=== PATIENT | male | born 1985 | race Caucasian/White ===

== ENCOUNTER 2023-05-28 08:30 | Outpatient (CLI) | payer BC ==
[2023-05-28 12:00] LABS: BASOPHILS % (AUTO) 0.8 %; EOSINOPHILS # (AUTO) 0.1 10^3/uL (0.0-0.7); HCT - HEMATOCRIT 48.6 % (42.0-52.0); HGB - HEMOGLOBIN 15.6 g/dL (14.0-18.0); LYMPHOCYTES # (AUTO) 1.8 10^3/uL (1.5-3.5); LYMPHOCYTES % (AUTO) 35.7 %; MEAN CORPUSCULAR HEMOGLOBIN 29.9 pg (27.0-31.0); MEAN CORPUSCULAR HGB CONC 32.1 g/dL (32.0-36.0); MEAN CORPUSCULAR VOLUME 93.1 fL (80.0-94.0); MEAN PLATELET VOLUME 11.1 fL (7.4-11.4); MONOCYTES # (AUTO) 0.4 10^3/uL (0.0-1.0); MONOCYTES % (AUTO) 8.7 %; NEUTROPHILS # (AUTO) 2.7 10^3/uL (1.5-6.6); NEUTROPHILS % (AUTO) 53.6 %; PLT - PLATELET COUNT 268 10^3/uL (130-450); RED BLOOD COUNT 5.22 10^6/uL (4.70-6.10); RED CELL DISTRIBUTION WIDTH 11.8 % (12.0-15.0)
[2023-05-28 12:17] LABS: INR 1.1 (0.8-1.2); PT - PROTHROMBIN TIME 11.7 secs (9.9-12.6)
[2023-05-28 12:21] LABS: RHEUMATOID FACTOR NEGATIVE (Negative)
[2023-05-28 12:31] LABS: THYROID STIMULATING HORMONE 2.78 uIU/mL (0.34-5.60)
[2023-05-28 12:33] LABS: PARTIAL THROMBOPLASTIN TIME 27.2 secs (24.9-33.3)
[2023-05-28 12:37] LABS: ALBUMIN 4.8 g/dL (3.2-5.5); ALBUMIN/GLOBULIN RATIO 1.7 (1.0-2.2); ALKALINE PHOSPHATASE 80 IU/L (42-121); ALT ALANINE AMINOTRANSFERASE 17 IU/L (10-60); AST ASPARTATE AMINOTRANSFERASE 13 IU/L (10-42); BILIRUBIN,TOTAL 0.5 mg/dL (0.2-1.0); BUN - BLOOD UREA NITROGEN 19 mg/dL (6-20); CALCIUM 10.5 mg/dL (8.5-10.3); CARBON DIOXIDE - CO2 30 mmol/L (21-32); CHLORIDE 102 mmol/L (101-111); CREATININE 0.9 mg/dL (0.6-1.3); CRP - C-REACTIVE PROTEIN < 0.5 mg/dL (<0.5); GFR - MDRD 94 (>89); GLUCOSE 99 mg/dL (74-104); POTASSIUM 4.2 mmol/L (3.5-4.5); SODIUM 138 mmol/L (135-145); TOTAL PROTEIN 7.6 g/dL (6.4-8.9)
== END 2023-05-28 08:45 | disposition home or self-care (01) ==
LOC: LAB.N 08:30
PROVIDERS: ATTEND Nurse Practitioner
DX: R23.8 Other skin changes (principal)
CPT/HCPCS: 36415; 80053; 84443; 85025; 85379; 85610; 85730; 86038; 86140; 86430

== ENCOUNTER 2023-05-28 13:47 | Emergency (ER) | payer BC ==
[2023-05-28 14:04] VITALS: BP 153/92; O2SAT 99
--- NOTE | 2023-05-28 14:18 | ED Physician Documentation ---
History of Present Illness - Stated complaint Stated Complaint: SENT BY CLINIC - Chief complaint Chief Complaint: General - Additonal information Additional information: Félix is a otherwise healthy 38-year-old gentleman who presents with l ongstanding symptoms in his extremities. He describes that he has had frequent bouts of what sounds a lot like Raynaud's phenomenon: He has extreme cold sensitivity out of his hands and feet he has skin that often changes color goes from red to pale to purple. He feels that he has slow healing wounds on his legs. He also states he occasionally has numbness and tingling of his arms especially when he sleeps in certain positions. He is never been told he has extra ribs or thoracic outlet syndrome. He has been having the symptoms of significant cold intolerance and purplish toes off and on with cold temperature for a number of years he says more may be more than 3. He is an avid cyclist and has lots of blisters on his toes that are slow to heal. He has a referral to podiatry for this. He ended up in the urgent care today for evaluating this longstanding problem. A check some lab work and found him to have an elevated D-dimer called him at home and asked him to come to the emergency department. He has no chest pain shortness of breath he is never had DVT. He has no immobility he is an active athlete. Non-smoker. No family history of significant issues like this. Review of Systems Skin: reports: Rash Neurologic: reports: Numbness PD PAST MEDICAL HISTORY - Past Medical History Past Medical History: No Cardiovascular: None Respiratory: None Neuro: None Endocrine/Autoimmune: None Psych: Anxiety - Past Surgical History Past Surgical History: No - Present Medications Home Medications: Ambulatory Orders Medication Instructions Recorded Confirmed Guanfacine HCl [Intuniv] 1 tab PO DAILY 05/28/23 05/28/23 - Allergies Allergies/Adverse Reactions: Allergies Allergy/AdvReac Type Severity Reaction Status Date / Time No Known Drug Allergies Allergy Verified 05/28/23 14:17 - Social History Does the pt smoke?: No Smoking Status: Never smoker Does the pt have substance abuse?: No - Immunizations Immunizations are current?: Yes PD ED PE NORMAL - Vitals Vital signs reviewed: Yes - General General: Alert and oriented X 3, No acute distress - HEENT HEENT: Atraumatic, Pharynx benign - Neck Neck: Supple, no meningeal sign - Cardiac Cardiac: RRR - Respiratory Respiratory: No respiratory distress - Extremities Extremities: No deformity - Neuro Neuro: No motor deficit, No sensory deficit - Free text exam Free text exam: Patient has pulses throughout including DP and PT. His toes are purplish in color. Cap refills less than 2 seconds. He does have blisters/bruises on the distal tips of his toes specifically on the left second and third toe. Sensation is intact motor function is intact. Upper extremity neurovascular exam is completely normal. His toes are cool to the touch. Results - Vitals Vitals: Vital Signs - 24 hr 05/28/23 13:49 Temperature 36.9 C Heart Rate 92 Respiratory 18 Rate Blood Pressure 153/92 H O2 Saturation 99 Oxygen O2 Source Room air - Rads (name of study) arterial duplex Relevant Findings:: Prelim report reviewed (normal study) PD Medical Decision Making - ED course Complexity details: reviewed old records, reviewed results (Outpatient labs show D-dimer over thousand. His rheumatoid factor is negative. CBC and chemistry otherwise unremarkable.), considered differential (Arterial insufficiency, Raynaud's phenomenon, Raynaud's syndrome associated with an autoimmune disease not yet diagnosed) ED course: Overall Félix's presentation is consistent with ongoing, subacute Raynaud's phenomenon. He does have purplish type toes though his cap refill is intact and his arterial Doppler study is normal. Color is to change based on temperature. With his warm socks on his toes to return to normal color. Rheumatoid factor is negative, further workup could be done to elucidate whether he has some other autoimmune condition that might be associated with Raynaud's phenomenon or syndrome. I do not think his presentation is consistent with deep vein thrombosis. Would not get a DVT study on this young man given his presentation. Arterial studies reassuring. He understands that given the chronic nature of the symptoms that may require further testing and evaluation to determine the exact cause but in the meantime doing as he is doing which is attempting to keep the extremities warm and following up with podiatry for wound care seem like totally reasonable options. Will give him a referral for PCP here in [place]. Departure - Departure Disposition: 01 Home, Self Care Clinical Impression: Raynaud phenomenon Qualifiers: Raynaud?s-associated gangrene presence: without gangrene Qualified Code(s): I73.00 - Raynaud's syndrome without gangrene Condition: Good Comments: As we discussed today, documenting that you have normal arterial perfusion is important in the setting of the testing he had earlier at the walk-in clinic. Further testing could absolutely be undertaken with your primary care physician to see if you have any other disease process associated with the Raynaud's ph enomenon. In the meantime continue to keep your extremities warm as best he can and keep her follow-up with podiatry to work on the blisters on your feet. We will give you a list of primary care physicians locally. Return to the emergency department for any other concerns. Hope you are feeling better soon. Forms: PCP List
--- NOTE | 2023-05-28 15:22 | Ultrasound Report ---
PROCEDURE: Arterial Duplex Lwr Ext BL INDICATIONS: purple toes TECHNIQUE: Color and pulse Doppler interrogation was performed of both lower extremity arterial systems, with im age documentation. COMPARISON: None FINDINGS: Right lower extremity: Common femoral artery: 131 cm/sec, with triphasic flow. Deep femoral artery: 89 cm/sec, with triphasic flow. Proximal superficial femoral artery: 109 cm/sec, with triphasic flow. Mid superficial femoral artery: 108 cm/sec, with triphasic flow. Distal superficial femoral artery: 111 cm/sec, with triphasic flow. Popliteal artery: 42 cm/sec, with triphasic flow. Posterior tibial artery: 48 cm/sec, with triphasic flow. Anterior tibial artery/dorsalis pedis: 70/23 cm/sec, with triphasic flow. Crandall-scale imaging description: No significant atherosclerotic plaque. Left lower extremity: Common femoral artery: 118 cm/sec, with triphasic flow. Deep femoral artery: 68 cm/sec, with biphasic flow. Proximal superficial femoral artery: 114 cm/sec, with triphasic flow. Mid superficial femoral artery: 115 cm/sec, with triphasic flow. Distal superficial femoral artery: 73 cm/sec, with triphasic flow. Popliteal artery: 64 cm/sec, with triphasic flow. Posterior tibial artery: 34 cm/sec, with triphasic flow. Anterior tibial artery/dorsalis pedis: 51/70 cm/sec, with triphasic flow. Crandall-scale imaging description: No significant atherosclerotic plaque. IMPRESSION: Patent lower extremity vasculature without hemodynamically significant stenosis. Reviewed by: Sanjay Gibbons MD on 05/28/2023 3:20 PM PDT Approved by: Sanjay Gibbons MD on 05/28/2023 3:20 PM PDT Station ID: [id number]
== END 2023-05-28 15:25 | disposition home or self-care (01) ==
LOC: ED 13:47
DX: I73.00 Raynaud's syndrome without gangrene (principal)
CPT/HCPCS: 36415; 80053; 84443; 85025; 85379; 85610; 85730; 86038; 86140; 86430; 93925; 99283; 99284